=== PATIENT | female | born 2005 | race Caucasian/White ===

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

== ENCOUNTER → 2025-02-14 | Outpatient (CLI) | payer OTHER | LOC: M EKG 12:38 | PROVIDERS: ATTEND Pediatrics | DX: R53.83 Other fatigue (principal) ==